=== PATIENT | female | born 1945 | race Caucasian/White ===

== ENCOUNTER → 2018-04-08 09:32 | Outpatient (CLI) | payer MEDICARE, OTHER, SELFPAY ==
[2018-04-08 12:25] LABS: Absolute Neutrophil Count 2.6 X10^3/uL (2.0-7.7); Basophil# 0.03 X10^3/uL; Basophil% 0.7 % (0-1); Eosinophil# 0.11 X10^3/uL; Eosinophils% 2.5 % (0-5); Hematocrit 36.9 % (37-47); Hemoglobin 11.2 g/dl (12.0-15.0); Lymphocyte % 25.5 % (19-41); Mean Corp Hgb Conc 30.4 g/gl (32-36); Mean Corpuscular Hgb 29.9 pg (27.0-32.0); Mean Corpuscular Volume 98.4 fL (81-99); Mean Platelet Vol. 10.4 fl (6.2-12.0); Monocyte# 0.45 X10^3/uL; Monocyte% 10.4 % (0-10); Neutrophil # 2.63 X10^3/uL (2.7-7.7); Neutrophil % 60.9 % (47-70); Platelet Count 241 K/mm3 (150-450); RBC Distribution Width CV 14.1 % (11.6-14.6); RBC Distribution Width SD 48.6 fl (35.1-43.9); Red Blood Count 3.75 M/mm3 (4.2-5.4); White Blood Count 4.3 K/mm3 (4.4-11.0)
[2018-04-08 12:30] LABS: POSITIVE COUNT NO; POSITIVE DIFFERENTIAL NO; POSITIVE MORPHOLOGY NO
[2018-04-08 12:35] LABS: ALB/GLOB Ratio 1.1 RATIO (0.9-2.4); AST(SGOT) 28 U/L (15-37); Alanine Aminotransfer ALT/SGPT 29 U/L (13-56); Albumin, Serum 3.6 g/dL (3.2-5.0); Alkaline Phosphatase 87 U/L (45-117); Anion Gap 9 (5-15); BUN 12 mg/dL (7-18); BUN/Creat Ratio 19.5 RATIO (10-20); Chloride 112 mmol/L (98-107); Cholesterol 153 mg/dL (200); Creatinine, Serum 0.61 mg/dL (0.55-1.02); EST Glomerular Filtration Rate 102 mL/min (>60); Est Glom Filt Rate - Afr Amer 123 mL/min (>60); Globulin 3.2 g/dL (2.2-4.2); Glucose 75 mg/dL (74-106); High Density Lipoprotein 61 mg/dL; Magnesium 1.9 mg/dL (1.6-2.6); Potassium 3.4 mmol/L (3.5-5.1); Protein, Total 6.8 g/dL (6.4-8.2); Sodium Level 147 mmol/L (136-145); Triglycerides 85 mg/dL; Very Low Density Lipoprotein 17 mg/dL (5-40)
[2018-04-08 12:40] LABS: Hemoglobin A1c 4.6 % (4.2-6.3)
[2018-04-08 12:47] LABS: Vitamin B12 > 2000 pg/mL (211-911)
== END ==
PROVIDERS: Family Provider Family Medicine; PCP Family Medicine; Visit Provider Family Medicine
DX: R73.09 Other abnormal glucose (principal); E78.00 Pure hypercholesterolemia, unspecified; Z90.3 Acquired absence of stomach [part of]
CPT/HCPCS: 36415; 80053; 80061; 82607; 83036; 83735; 85025

== ENCOUNTER → 2018-05-26 08:07 | Outpatient (CLI) | payer MEDICARE, OTHER, SELFPAY | PROVIDERS: Family Provider Family Medicine; PCP Family Medicine; Visit Provider Family Medicine | DX: R10.11 Right upper quadrant pain (principal) | CPT/HCPCS: 76705 ==

== ENCOUNTER → 2018-06-11 06:49 | Outpatient (CLI) | payer MEDICARE, OTHER, SELFPAY ==
--- NOTE | 2018-06-11 07:00 | CT_ITS ---
STUDY: CT ABDOMEN AND PELVIS WITH CONTRAST REASON FOR EXAM: Female, 73 years old. Right-sided abdominal pain. History of prior gastrectomy. Possible gallbladder mass versus polyp. RADIATION DOSAGE (If Supplied By Facility): CTDIvol = ( 20.42 ) mGy, DLP = ( 1318.92 ) mGycm TECHNIQUE: Transaxial images were obtained from the dome of the diaphragm to the symphysis pubis with oral contrast. 100mL ml of Isovue 300 contrast was administered. Sagittal and coronal images were reconstructed. Individualized dose optimization techniques were used for this CT. COMPARISON: Comparison is made with prior examination dated February 06, 2014. FINDINGS: Minimal degree of increased linear markings in the lingular segment of the left upper lobe suggestive of linear atelectasis and/or scarring. Tiny pericardial effusion along the posterior aspect of the pericardium. Normal liver. The gallbladder is distended. There is dilatation of the common bile duct down to the ampulla of Vater. The transverse dimension of the common bile duct is 1 cm. Possible mass of the ampulla of Vater should be Normal spleen. Normal pancreas. There is a stable 6 mm x 9.8 mm calcification in the posterior aspect of the medial limb of the right adrenal gland. There is also evidence of a 1 cm hypodense nodule in the posterior aspect of the left adrenal gland. Normal right kidney. There is a 4.3 mm nonobstructive calculus in the lower pole calyx of the left kidney. The patient is status post gastrectomy. The suture line is seen at the gastroesophageal junction. Normal small intestine. There are scattered colonic diverticula consistent with diverticulosis. The appendix is visualized and appears normal. Normal abdominal aorta. Normal inferior vena cava. Normal retroperitoneum. Normal urinary bladder. Normal abdominal wall. There are diffuse degenerative changes of the visualized lumbar spine. Stable loss of height of the superior endplate of the L3 vertebrae. CT/Abdomen/Pelvis WITH Contrast IMPRESSION: Distended gallbladder. Dilated common bile duct down to the insertion into the ampulla of Vater. Prior gastrectomy. Electronically Signed: Jozef Red MD at 9:06 EDT Tel [phone], Service support ,
[2018-06-11 07:10] LABS: CREATININE FINGERSTICK 0.7 mg/dL (0.55-1.02)
== END ==
PROVIDERS: Family Provider Family Medicine; PCP Family Medicine; Visit Provider Family Medicine
DX: K82.8 Other specified diseases of gallbladder (principal)
CPT/HCPCS: 74177; Q9967

== ENCOUNTER → 2018-06-19 09:00 | Outpatient (CLI) | payer MEDICARE, OTHER, SELFPAY ==
[2018-06-22 09:23] LABS: Carbohydrate Ag 19-9 2261 12 U/mL (0-35); Carcinoembryonic Antigen 12.6 ng/mL (0.0-4.7)
== END ==
PROVIDERS: Surgery; Family Provider Family Medicine; PCP Family Medicine; Visit Provider Family Medicine
DX: K82.8 Other specified diseases of gallbladder (principal); R10.13 Epigastric pain
CPT/HCPCS: 36415; 82378; 86301

== ENCOUNTER → 2018-06-24 06:15 | Outpatient (CLI) | payer MEDICARE, OTHER, SELFPAY ==
--- NOTE | 2018-06-24 06:17 | MRI_ITS ---
STUDY: MR CHOLANGIOPANCREATOGRAPHY (MRCP) REASON FOR EXAM: Female, 73 years old. Abdominal pain, f/u to ct abd ; u/s; hx gastrectomy TECHNIQUE: Standard MRCP technique was utilized. COMPARISON: CT Abdomen/Pelvis Jun 11 2018 7:25am US Abdomen May 26 2018 8:18am FINDINGS: Degenerative findings of the lumbar spine. There is a small pericardial effusion. There are calcifications of the abdominal aorta. This is consistent for atherosclerotic disease. There is no abdominal aortic aneurysm. Gall Bladder: There is either gallbladder sludge or multiple small layering gallstones. Cystic duct: Normal with no demonstrated fixed filling defect. Intrahepatic ducts: There is intrahepatic ductal dilation. This is mostly visualized on the left side. Common hepatic duct: Normal with no demonstrated fixed filling defect, dilation or stricture. Common bile duct: There is dilation of the common bile duct. A common bile duct stone is not seen. The CBD diameter is 10 mm. Pancreatic duct: Normal with no demonstrated fixed filling defect, dilation or stricture. MRI/MRCP Abdomen without Contrast IMPRESSION: There is either gallbladder sludge or multiple small layering gallstones. There is dilation of the common bile duct. A common bile duct stone is not seen. The CBD diameter is 10 mm. Electronically Signed: Martin Washington MD at 23:30 EDT , Service support ,
== END ==
PROVIDERS: Family Provider Family Medicine; PCP Family Medicine; Referring Provider Surgery; Visit Provider Surgery
DX: R10.9 Unspecified abdominal pain (principal); R93.2 Abnormal findings on diagnostic imaging of liver and biliary tract
CPT/HCPCS: 74181

== ENCOUNTER → 2018-10-05 10:08 | Outpatient (CLI) | payer MEDICARE, OTHER, SELFPAY ==
[2018-10-05 12:04] LABS: Absolute Lymphocyte Count 1.15 X10^3/ul (0.83-4.51); Absolute Neutrophil Count 2.2 X10^3/uL (2.0-7.7); Basophil# 0.04 X10^3/uL; Eosinophil# 0.19 X10^3/uL; Eosinophils% 4.9 % (0-5); Hematocrit 39.9 % (37-47); Hemoglobin 12.1 g/dl (12.0-15.0); Lymphocyte # 1.15 X10^3/ul (4.0); Lymphocyte % 29.6 % (19-41); Mean Corp Hgb Conc 30.3 g/gl (32-36); Mean Corpuscular Hgb 29.3 pg (27.0-32.0); Mean Corpuscular Volume 96.6 fL (81-99); Mean Platelet Vol. 10.3 fl (6.2-12.0); Monocyte% 7.7 % (0-10); Neutrophil # 2.21 X10^3/uL (2.7-7.7); Neutrophil % 56.8 % (47-70); Platelet Count 211 K/mm3 (150-450); RBC Distribution Width CV 14.7 % (11.6-14.6); RBC Distribution Width SD 51.9 fl (35.1-43.9); Red Blood Count 4.13 M/mm3 (4.2-5.4); White Blood Count 3.9 K/mm3 (4.4-11.0)
[2018-10-05 12:05] LABS: ALB/GLOB Ratio 1.2 RATIO (0.9-2.4); AST(SGOT) 33 U/L (15-37); Alanine Aminotransfer ALT/SGPT 34 U/L (13-56); Albumin, Serum 3.7 g/dL (3.2-5.0); Alkaline Phosphatase 102 U/L (45-117); Anion Gap 9 (5-15); BUN 9 mg/dL (7-18); BUN/Creat Ratio 14.5 RATIO (10-20); Chloride 112 mmol/L (98-107); Creatinine, Serum 0.62 mg/dL (0.55-1.02); EST Glomerular Filtration Rate 101 mL/min (>60); Est Glom Filt Rate - Afr Amer 122 mL/min (>60); Glucose 79 mg/dL (74-106); Potassium 3.8 mmol/L (3.5-5.1); Protein, Total 6.7 g/dL (6.4-8.2); Sodium Level 144 mmol/L (136-145)
[2018-10-05 12:10] LABS: Vitamin B12 1283 pg/mL (211-911); Vitamin D,25 Hydroxy 37.8 ng/mL (29.95-100.01)
[2018-10-05 12:13] LABS: POSITIVE COUNT NO; POSITIVE DIFFERENTIAL NO; POSITIVE MORPHOLOGY NO
== END ==
PROVIDERS: Family Provider Family Medicine; PCP Family Medicine; Visit Provider Family Medicine
DX: D50.9 Iron deficiency anemia, unspecified (principal); Z90.3 Acquired absence of stomach [part of]
CPT/HCPCS: 36415; 80053; 82306; 82607; 83735; 85025

== ENCOUNTER → 2020-03-20 10:26 | Outpatient (CLI) | payer MEDICARE, OTHER, SELFPAY ==
[2018-06-18 08:27] VITALS: BMI 23.8
[2020-03-20 12:06] LABS: Absolute Lymphocyte Count 1.05 X10^3/uL (0.83-4.51); Basophil# 0.04 X10^3/uL; Basophil% 0.7 % (0-1); Eosinophil# 0.13 X10^3/uL; Eosinophils% 2.3 % (0-5); Hematocrit 40.7 % (37-47); Hemoglobin 12.4 g/dL (12.0-15.0); Lymphocyte # 1.05 X10^3/ul (4.0); Lymphocyte % 18.5 % (19-41); Mean Corp Hgb Conc 30.5 g/dL (32-36); Mean Corpuscular Hgb 30.8 pg (27.0-32.0); Mean Platelet Vol. 10.7 fl (6.2-12.0); Monocyte# 0.49 X10^3/uL; Monocyte% 8.6 % (0-10); NRBC Flagged by Analyzer 0 % (0-5); Neutrophil # 3.97 X10^3/uL (2.7-7.7); Neutrophil % 69.7 % (47-70); Platelet Count 229 K/mm3 (150-450); RBC Distribution Width CV 14.7 % (11.6-14.6); RBC Distribution Width SD 53.8 fl (35.1-43.9); Red Blood Count 4.03 M/mm3 (4.2-5.4); White Blood Count 5.7 K/mm3 (4.4-11.0)
[2020-03-20 12:22] LABS: ALB/GLOB Ratio 1.2 RATIO (0.9-2.4); AST(SGOT) 26 U/L (15-37); Alanine Aminotransfer ALT/SGPT 30 U/L (13-56); Albumin, Serum 4.1 g/dL (3.2-5.0); Alkaline Phosphatase 91 U/L (45-117); Anion Gap 8 (5-15); BUN 10 mg/dL (7-18); Calcium,Total 9.6 mg/dL (8.5-10.1); Chloride 104 mmol/L (98-107); Cholesterol 200 mg/dL (200); Creatinine, Serum 0.71 mg/dL (0.55-1.02); EST Glomerular Filtration Rate 85 mL/min (>60); Est Glom Filt Rate - Afr Amer 103 mL/min (>60); Globulin 3.3 g/dL (2.2-4.2); Glucose 85 mg/dL (74-106); High Density Lipoprotein 90 mg/dL; Potassium 3.8 mmol/L (3.5-5.1); Protein, Total 7.4 g/dL (6.4-8.2); Sodium Level 140 mmol/L (136-145); Triglycerides 87 mg/dL; Very Low Density Lipoprotein 17 mg/dL (5-40)
== END ==
PROVIDERS: PCP Family Medicine; Visit Provider Family Medicine
DX: D50.9 Iron deficiency anemia, unspecified (principal); I10 Essential (primary) hypertension
CPT/HCPCS: 36415; 80053; 80061; 85025

== ENCOUNTER → 2020-03-23 13:09 | Outpatient (CLI) | payer MEDICARE, OTHER, SELFPAY ==
[2018-06-18 08:27] VITALS: BMI 23.8
--- NOTE | 2020-03-23 13:15 | RAD_ITS ---
STUDY: X-RAY - LEFT FOOT CLINICAL: Female, 74 years old. Left foot pain and burning TECHNIQUE: 3 view(s) of the foot. COMPARISON: None. FINDINGS: Normal talus, calcaneus, and tarsal bones. Normal visualized subtalar, talonavicular, calcaneocuboid, tarsal and tarsometatarsal articulations. Normal metatarsi. There is degenerative arthrosis of the metatarsophalangeal joint of the hallux . Normal tibial and fibular sesamoid bones. Normal interphalangeal joint of the great toe. Normal phalanges of the great toe. Normal second through fifth metatarsophalangeal joints. Mild PIP and DIP joint arthrosis The soft tissue structures are unremarkable. RAD/Foot min 3 Views IMPRESSION: Degenerative arthrosis, no demonstrated fracture or suspicious osseous lesion Electronically Signed: Mich Jain MD at 13:36 EDT , Service support ,
== END ==
PROVIDERS: PCP Family Medicine
DX: M79.672 Pain in left foot (principal)
CPT/HCPCS: 73630

== ENCOUNTER → 2020-08-11 11:44 | Outpatient (CLI) | payer MEDICARE, OTHER, SELFPAY ==
[2018-06-18 08:27] VITALS: BMI 23.8
[2020-08-11 15:15] LABS: Absolute Lymphocyte Count 1.34 X10^3/uL (0.83-4.51); Absolute Neutrophil Count 3.2 X10^3/uL (2.0-7.7); Basophil# 0.03 X10^3/uL; Basophil% 0.6 % (0-1); Eosinophil# 0.33 X10^3/uL; Eosinophils% 6.2 % (0-5); Hematocrit 41.5 % (37-47); Hemoglobin 12.5 g/dL (12.0-15.0); Lymphocyte # 1.34 X10^3/ul (4.0); Lymphocyte % 25.1 % (19-41); Mean Corp Hgb Conc 30.1 g/dL (32-36); Mean Corpuscular Hgb 29.6 pg (27.0-32.0); Mean Corpuscular Volume 98.1 fL (81-99); Mean Platelet Vol. 10.6 fl (6.2-12.0); Monocyte# 0.38 X10^3/uL; Monocyte% 7.1 % (0-10); NRBC Flagged by Analyzer 0 % (0-5); Neutrophil # 3.24 X10^3/uL (2.7-7.7); Neutrophil % 60.8 % (47-70); Platelet Count 285 K/mm3 (150-450); RBC Distribution Width CV 14.5 % (11.6-14.6); RBC Distribution Width SD 52.5 fl (35.1-43.9); Red Blood Count 4.23 M/mm3 (4.2-5.4); White Blood Count 5.3 K/mm3 (4.4-11.0)
[2020-08-11 15:57] LABS: Anion Gap 6 (5-15); BUN 15 mg/dL (7-18); BUN/Creat Ratio 20.2 RATIO (10-20); Calcium,Total 9.3 mg/dL (8.5-10.1); Chloride 107 mmol/L (98-107); Cholesterol 187 mg/dL (200); Creatinine, Serum 0.74 mg/dL (0.55-1.02); EST Glomerular Filtration Rate 81 mL/min (>60); Est Glom Filt Rate - Afr Amer 98 mL/min (>60); Glucose 84 mg/dL (74-106); High Density Lipoprotein 74 mg/dL; Potassium 3.9 mmol/L (3.5-5.1); Sodium Level 140 mmol/L (136-145); Thyroid Stim Hormone (TSH) 1.25 uIU/mL (0.358-3.74); Triglycerides 98 mg/dL; Very Low Density Lipoprotein 20 mg/dL (5-40)
== END ==
PROVIDERS: PCP Family Medicine; Referring Provider Family Medicine; Visit Provider Family Medicine
DX: E78.00 Pure hypercholesterolemia, unspecified (principal); I10 Essential (primary) hypertension
CPT/HCPCS: 36415; 80048; 80061; 84443; 85025

== ENCOUNTER → 2020-09-11 09:57 | Outpatient (CLI) | payer MEDICARE, OTHER, SELFPAY ==
[2018-06-18 08:27] VITALS: BMI 23.8
--- NOTE | 2020-09-11 10:02 | RAD_ITS ---
STUDY: X-RAY - ABDOMEN/PELVIS REASON FOR EXAM: Female, 75 years old. Pt had a gastrectomy about 5 years ago, is having burning across anterior abdomen now TECHNIQUE: AP supine and upright views of the abdomen and pelvis. COMPARISON: None. FINDINGS: Normal visualized lung bases. A loop recording device is seen overlying the left cardiac border. There is an unremarkable bowel gas pattern. There is no demonstrated free abdominal air. Surgical clips are seen in the epigastric region in keeping with history of prior gastrectomy sutures are seen in the left mid abdomen. Normal soft tissue structures. There are diffuse degenerative changes of the visualized lumbar spine. Mild levoscoliosis. Osteoarthritis of both hip joints. RAD/Abd Inc Decub and/or Erect IMPRESSION: Nonspecific bowel gas pattern. History of prior gastrectomy and anastomosis in the left midabdomen. Electronically Signed: Jozef Red, at 10:46 EST , Service support ,
[2020-09-11 12:27] LABS: Absolute Lymphocyte Count 0.94 X10^3/uL (0.83-4.51); Absolute Neutrophil Count 2.6 X10^3/uL (2.0-7.7); Basophil# 0.03 X10^3/uL; Basophil% 0.7 % (0-1); Eosinophil# 0.67 X10^3/uL; Eosinophils% 14.6 % (0-5); Hematocrit 42.3 % (37-47); Hemoglobin 13.4 g/dL (12.0-15.0); Lymphocyte # 0.94 X10^3/ul (4.0); Lymphocyte % 20.5 % (19-41); Mean Corp Hgb Conc 31.7 g/dL (32-36); Mean Corpuscular Hgb 30.2 pg (27.0-32.0); Mean Corpuscular Volume 95.3 fL (81-99); Mean Platelet Vol. 10.3 fl (6.2-12.0); Monocyte# 0.35 X10^3/uL; Monocyte% 7.6 % (0-10); NRBC Flagged by Analyzer 0 % (0-5); Neutrophil # 2.58 X10^3/uL (2.7-7.7); Neutrophil % 56.4 % (47-70); Platelet Count 264 K/mm3 (150-450); RBC Distribution Width CV 14.6 % (11.6-14.6); RBC Distribution Width SD 51.8 fl (35.1-43.9); Red Blood Count 4.44 M/mm3 (4.2-5.4); White Blood Count 4.6 K/mm3 (4.4-11.0)
[2020-09-11 12:51] LABS: ALB/GLOB Ratio 1.5 RATIO (0.9-2.4); AST(SGOT) 29 U/L (15-37); Alanine Aminotransfer ALT/SGPT 36 U/L (13-56); Albumin, Serum 4.2 g/dL (3.2-5.0); Alkaline Phosphatase 106 U/L (45-117); Amylase 54 U/L (25-115); Anion Gap 7 (5-15); BUN 15 mg/dL (7-18); BUN/Creat Ratio 21.6 RATIO (10-20); Calcium,Total 9.3 mg/dL (8.5-10.1); Chloride 102 mmol/L (98-107); Creatinine, Serum 0.69 mg/dL (0.55-1.02); EST Glomerular Filtration Rate 88 mL/min (>60); Est Glom Filt Rate - Afr Amer 106 mL/min (>60); Globulin 2.8 g/dL (2.2-4.2); Glucose 83 mg/dL (74-106); Lipase 141 U/L (73-393); Potassium 4.4 mmol/L (3.5-5.1); Sodium Level 136 mmol/L (136-145)
== END ==
PROVIDERS: PCP Family Medicine; Referring Provider Nurse Practitioner Adult Health; Visit Provider Nurse Practitioner Adult Health
DX: R10.9 Unspecified abdominal pain (principal); R11.0 Nausea
CPT/HCPCS: 36415; 74019; 80053; 82150; 83690; 85025

== ENCOUNTER → 2020-10-23 14:25 | Outpatient (CLI) | payer MEDICARE, OTHER, SELFPAY ==
[2018-06-18 08:27] VITALS: BMI 23.8
== END ==
PROVIDERS: PCP Family Medicine; Referring Provider Family Medicine; Visit Provider Family Medicine
DX: Z20.822 Contact with and (suspected) exposure to COVID-19 (principal)
CPT/HCPCS: 87635; U0003

== ENCOUNTER → 2020-11-15 08:57 | Outpatient (CLI) | payer MEDICARE, OTHER, SELFPAY ==
[2018-06-18 08:27] VITALS: BMI 23.8
[2020-11-15 11:01] LABS: ALB/GLOB Ratio 1.5 RATIO (0.9-2.4); AST(SGOT) 30 U/L (15-37); Alanine Aminotransfer ALT/SGPT 38 U/L (13-56); Albumin, Serum 4.1 g/dL (3.2-5.0); Alkaline Phosphatase 86 U/L (45-117); Anion Gap 5 (5-15); BUN 20 mg/dL (7-18); BUN/Creat Ratio 26.1 RATIO (10-20); Calcium,Total 9.4 mg/dL (8.5-10.1); Chloride 106 mmol/L (98-107); Creatinine, Serum 0.77 mg/dL (0.55-1.02); EST Glomerular Filtration Rate 78 mL/min (>60); Est Glom Filt Rate - Afr Amer 95 mL/min (>60); Globulin 2.8 g/dL (2.2-4.2); Glucose 81 mg/dL (74-106); Potassium 4.1 mmol/L (3.5-5.1); Protein, Total 6.9 g/dL (6.4-8.2); Sodium Level 142 mmol/L (136-145)
== END ==
PROVIDERS: PCP Family Medicine; Referring Provider Family Medicine; Visit Provider Family Medicine
DX: I10 Essential (primary) hypertension (principal)
CPT/HCPCS: 36415; 80053

== ENCOUNTER → 2021-03-19 09:26 | Outpatient (CLI) | payer MEDICARE, OTHER, SELFPAY ==
[2018-06-18 08:27] VITALS: BMI 23.8
[2021-03-19 12:22] LABS: Absolute Lymphocyte Count 1.12 X10^3/uL (0.83-4.51); Absolute Neutrophil Count 2.8 X10^3/uL (2.0-7.7); Basophil# 0.03 X10^3/uL; Basophil% 0.7 % (0-1); Eosinophil# 0.19 X10^3/uL; Eosinophils% 4.2 % (0-5); Hematocrit 39.5 % (37-47); Hemoglobin 12.3 g/dL (12.0-15.0); Lymphocyte # 1.12 X10^3/ul (0.83-4.51); Lymphocyte % 24.6 % (19-41); Mean Corp Hgb Conc 31.1 g/dL (32-36); Mean Corpuscular Hgb 29.6 pg (27.0-32.0); Mean Platelet Vol. 9.7 fl (6.2-12.0); Monocyte# 0.41 X10^3/uL; NRBC Flagged by Analyzer 0 % (0-5); Neutrophil # 2.79 X10^3/uL (2.7-7.7); Neutrophil % 61.3 % (47-70); Platelet Count 273 K/mm3 (150-450); RBC Distribution Width CV 14.5 % (11.6-14.6); RBC Distribution Width SD 50.2 fl (35.1-43.9); Red Blood Count 4.16 M/mm3 (4.2-5.4); White Blood Count 4.6 K/mm3 (4.4-11.0)
[2021-03-19 12:57] LABS: ALB/GLOB Ratio 1.1 RATIO (0.9-2.4); AST(SGOT) 28 U/L (15-37); Alanine Aminotransfer ALT/SGPT 29 U/L (13-56); Albumin, Serum 3.9 g/dL (3.2-5.0); Alkaline Phosphatase 93 U/L (45-117); Anion Gap 8 (5-15); BUN 15 mg/dL (7-18); BUN/Creat Ratio 17.1 RATIO (10-20); Calcium,Total 9.3 mg/dL (8.5-10.1); Chloride 101 mmol/L (98-107); Cholesterol 195 mg/dL (200); Creatinine, Serum 0.88 mg/dL (0.55-1.02); EST Glomerular Filtration Rate 67 mL/min (>60); Est Glom Filt Rate - Afr Amer 81 mL/min (>60); Globulin 3.4 g/dL (2.2-4.2); Glucose 81 mg/dL (74-106); High Density Lipoprotein 90 mg/dL; Potassium 3.9 mmol/L (3.5-5.1); Protein, Total 7.3 g/dL (6.4-8.2); Sodium Level 139 mmol/L (136-145); Triglycerides 77 mg/dL; Very Low Density Lipoprotein 15 mg/dL (5-40)
== END ==
PROVIDERS: PCP Family Medicine; Referring Provider Family Medicine; Visit Provider Family Medicine
DX: I10 Essential (primary) hypertension (principal)
CPT/HCPCS: 36415; 80053; 80061; 85025

== ENCOUNTER → 2021-09-27 13:51 | Outpatient (CLI) | payer MEDICARE, OTHER, SELFPAY ==
--- NOTE | 2021-09-27 13:54 | RAD_ITS ---
STUDY: X-RAY - THORACIC SPINE REASON FOR EXAM: Female, 76 years old. PAIN TECHNIQUE: 2 view(s) of the thoracic spine were obtained. COMPARISON: None. FINDINGS: Normal kyphosis of the thoracic spine. Mild dextroscoliosis of the upper thoracic spine. There is multilevel endplate spondylosis of the thoracic vertebrae. There is multilevel disc space narrowing of the thoracic spine. The soft tissue structures are unremarkable. RAD/Thoracic Spine 3 Views IMPRESSION: Mild dextroscoliosis with the degenerative disc disease. Electronically Signed: Garrett Angeles MD at 7:31 EST Tel , Service support ,
== END ==
PROVIDERS: PCP Family Medicine; Referring Provider Anesthesiology Pain Medicine; Visit Provider Anesthesiology Pain Medicine
DX: M51.34 Other intervertebral disc degeneration, thoracic region (principal)
CPT/HCPCS: 72072

== ENCOUNTER → 2023-05-29 | Outpatient (CLI) | payer MEDICARE, OTHER, SELFPAY ==
[2023-05-29 09:58] LABS: D-Dimer Quantitative (DVT/PE) 0.96 FEU/ug/m (0.27-0.49)
== END | disposition home or self-care (01) ==
PROVIDERS: PCP Family Medicine; Referring Provider Nurse Practitioner Family; Visit Provider Nurse Practitioner Family
DX: R06.02 Shortness of breath (principal)
CPT/HCPCS: 85379

== ENCOUNTER 2024-02-12 11:00 | Outpatient (RCR) | payer MEDICARE, OTHER, SELFPAY ==
--- NOTE | 2024-01-07 11:20 | HP.PTEVAL ---
Patient's Visit Information Visit Information Visit Information: МАРИЯ MOSQUERA is a 78 year old F referred to Physical Therapy by Dr. Iron Watts MD with a diagnosis of R peripheral vertigo. Date of Evaluation: 01/07/24 Physical Therapist: Adalid Landaverde, DPT, OCS, CSCS Visit Plan Frequency: 2x /Week Duration: 4-6 Weeks Plan: 2x/week for 4-6 weeks(start one f/u EG for positional and oculomotor check and treat) positional dizzyness treatments. adaptation ex if necessary Teach general strength and balance ex once dizzyness gone for progression to home I. Subjective Subjective: Sees Stefanie as she was in the hospital 2 weeks ago with dizzyness that took her to the hospital. She was seeing him already for migraines. Sizzyness started 2 weeks ago with ringing in ears and spinning, woke up that way and hard to walk. Dtr took to ER and testing and in hospital showed prior stroke but not a new one. Was dizzy at that time unless she stayed still in supine. Also could sit comfortably. Sent home dizzy 3 days later and unable to walk but having to use walker. Since then has gotten a little better able to walk without AD. Still gets spinning sitting up in the am but not at night lying, rolling does not make dizzy. Truning head quickly up or down can also make her feel out of control;. it lasts for up to an hour and she has to lie down. Sleeping is OK now. Not employed. Spends day taking care of which she can do but has to take it slow. Will see ENT soon. Will have ablation on back later this month for pain with Dr. King. Exercises, at home walking. until yesterday. Hobbies: reading and word search. Reading limited due to cataracts. basic ADL: all I but slower if dizzy. Steps 2 to enter, and ramp Overall 40% better. No falls, does not need walker anymore, cane at times. Was having home PT strength but needed to stop to come to for vestibular, likes getting out of house. Objective Objective: Walks slowly but I into PT safely. trasnfers with some groan with back pain but I bed and chair. Steps reciprocal with two rails up and down. cervical aROM WFL and without c/o pain. weakness evident pushing up steps as needs railing. Slow to exit chair makes weakness evident also. UE AROM slow and about 130 elevation, stiff but funcitonal. - L hallpike madeleine Slight + r hallpike madeleine for asymmetrical dizzyness and possible up torsional nystagmus both last 10 seconds and not present on the L. Treated with modified R angelina and then - HD test. Balance/Special Test Scores Functional Gait Assessment Score: 23 % Disability: 23.3400 CATSIB Score (Max score 120 seconds): 76 Dizziness Score: 54 Goals Goal 1:: abolish dizzyness with sitting up and moving head 95% Goal Time Frame: 4-6 Weeks Goal 2:: Pt DHI score 16 or less Goal Time Frame: 4-6 Weeks Goal 3:: I appropriate HEP for general ex and balance as needed to limit future problems. Goal Time Frame: 4-6 Weeks Rehabilitation Potential Physical Therapy Diagnosis: vertigo effecting function and weakness overall from hospital stays. Rehabilitation Potential: Fair Anticipated Interventions Patient/Client Instruction: Educate patient on: Condition, Plan of Care and Risk Factors For the Purpose of:: To increase tolerance to activity/condition/position, To improve ability of physical actions for home/community/work/leisure and To improve gait and locomotor functions Therapeutic Exercise to Include: Strength training and Gait and locomotor training Comment: positional and adaptation as needed For the Purpose of:: To improve muscle performance and motor function, To increase tolerance to activity/condition/position, To improve ability of physical actions for home/community/work/leisure and To improve gait and locomotor functions Text: Thank you for the opportunity to evaluate your patient. For Medicare and Medicare HMO plans, please review the plan of care and approve it. It will need to be FAXED BACK to us at [phone] for Medicare purposes. For Medicare only, by signing this I certify the plan of care. Please let me know if there are questions or concerns regarding this plan of care. Physician Signature: Date:
--- NOTE | 2024-02-12 11:13 | HP.PTDCSUM ---
Discharge Summary D/C summary: It has been my pleasure to treat МАРИЯ MOSQUERA referred by Dr. Iron Watts MD, with the diagnosis of R peripheral vertigo for a total of 9 visit(s). Discharge Date: 02/12/24 Please see the following information for a summary of their discharge status. Subjective Subjective: Back is feeling pretty good, stiffer in am but time helps. Pool really helps her feel wonderful and will continue at pool at house. No dizzyness lately, balance improvements and no dizzyness with VOR, doing counter exercises at home. 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 Pain BACK: Pain Intensity (Out of 10): 6 Overall Improvement % Improvement: 90 Objective Objective/Function: No dizzyness with head movements today. LB AROM ext mod limited but SB and flexion are good and none painful. Moving well and walking safe and I. ready to be on her own in home pool adn HEP Goals Goal 1:: abolish dizzyness with sitting up and moving head 95% Goal Progress: Goal Met Goal 2:: Pt DHI score 16 or less Goal Progress: Goal Met Goal 3:: I appropriate HEP for general ex and balance as needed to limit future problems. Goal Progress: Goal Met Plan Plan: d/c D/C Information d/c sentence: If there are questions or concerns regarding this patient's physical therapy, please feel free to call me at [phone]. Thank you for the referral of this patient. Sincerely, Adalid Landaverde, DPT, OCS, CSCS Balance/Gait/Functional tests Balance/Special Test Scores Functional Gait Assessment Score: 26 % Disability: 13.3400 CATSIB Score (Max score 120 seconds): 76 Dizziness Score: 0 30 Second Chair Rise Test Seconds: 13 Improvement % Improvement: 90
== END 2024-02-12 12:17 | disposition home or self-care (01) ==
LOC: PT 11:00
PROVIDERS: PCP Family Medicine; Referring Provider Psychiatry & Neurology Neurology; Visit Provider Psychiatry & Neurology Neurology
DX: H81.391 Other peripheral vertigo, right ear (principal)
CPT/HCPCS: 97113; 97162; 97164; 97530

== ENCOUNTER 2024-12-22 15:15 | Emergency (ER) | payer MEDICARE, OTHER, SELFPAY ==
[2024-12-22] VITALS (7 sets, daily range): BP systolic 119–159; BP diastolic 65–90; PULSE 60–87; RESP 15–21; TEMP 36.4–36.6; O2SAT 94–99
--- NOTE | 2024-12-22 15:27 | ED.VIS.CHEST ---
HPI History of Present Illness Chief Complaint: Chest Pain [facility] Medical History Gallbladder mass Epigastric abdominal pain Anxiety and depression Gastroparesis History of diverticulitis Renal calculi Peptic ulcer Back pain Osteoarthritis HTN (hypertension) Home Medications ?Medication ?Instructions ?Recorded ?Last Taken ?Type baclofen 10 mg tablet 10 mg PO TID 01/23/14 02/06/14 History lisinopril 20 mg tablet 20 mg PO DAILY 01/23/14 02/06/14 History mirtazapine 30 mg tablet 30 mg PO QHS 01/23/14 Unknown History ropinirole 4 mg tablet 4 mg PO TID 01/23/14 02/06/14 History ascorbate calcium (vitamin C) 500 500 mg PO DAILY 06/18/18 Unknown History mg tablet cetirizine 10 mg tablet (Zyrtec) 5 mg PO DAILY PRN 06/18/18 Unknown History escitalopram oxalate 10 mg tablet 10 mg PO DAILY 06/18/18 Unknown History potassium chloride 20 mEq 20 meq PO DAILY 06/18/18 Unknown History tablet,extended release vitamin B complex (B 1 tab PO DAILY 06/18/18 Unknown History Complex-Vitamin B12 tablet) Allergy/AdvReac Type Severity Reaction Status Date / Time metoclopramide (From Reglan) Allergy Mild rash Verified 12/22/24 15:20 morphine Allergy Mild rash Verified 12/22/24 15:20 sertraline HCl (From Zoloft) AdvReac Vomiting Verified 12/22/24 15:20 Sulfa (Sulfonamide AdvReac Vomiting Verified 12/22/24 15:20 Antibiotics) Family History Mother Cancer kidney Diabetes Brother Diabetes Sister Diabetes Daughter Diabetes Surgical History Status post laparoscopic Belkys fundoplication History of colonoscopy History of esophagogastroduodenoscopy (EGD) History of tonsillectomy and adenoidectomy History of sinus surgery Status post insertion of percutaneous endoscopic gastrostomy (PEG) tube History of surgical removal of ganglion cyst History of gastrectomy (~2015) History of hernia repair History of laparoscopy History of carpal tunnel release History of laminectomy Status post trigger finger release Social History Smoking Status: Never smoker EXAM Physical Exam Const Vital Signs: 12/22/24 15:17 12/22/24 15:38 12/22/24 16:16 Temperature 97.5 F L Temperature Source Temporal Pulse Rate 87 63 Respiratory Rate 20 H Respiratory Effort Short of Breath Blood Pressure 139/90 H 119/89 H Blood Pressure Mean 106 99 Pulse Ox 98 99 Oxygen Delivery Method Room Air Room Air 12/22/24 16:57 12/22/24 18:00 12/22/24 19:00 Temperature Temperature Source Pulse Rate 63 63 60 Respiratory Rate 19 H Respiratory Effort Blood Pressure 136/66 H 159/65 H 151/81 H Blood Pressure Mean 89 96 104 Pulse Ox 98 97 98 Oxygen Delivery Method Room Air Room Air Room Air 12/22/24 20:00 12/22/24 20:43 Temperature 98 F Temperature Source Pulse Rate 60 60 Respiratory Rate 15 21 H Respiratory Effort Blood Pressure 148/68 H 148/78 H Blood Pressure Mean 94 101 Pulse Ox 94 98 Oxygen Delivery Method Room Air MDM MDM MDM Narrative Medical decision making narrative: HISTORY OF PRESENT ILLNESS: 79-year-old female history of anxiety, depression, vertigo, shortness of breath, status post pacer presents concern for chest pain, shortness of breath and dizziness. She states the symptoms began 5 to 6 days ago. Is been intermittent. She gets worse shortness of breath with exertion. Denies leg swelling. Denies any bleeding diathesis. Notes left-sided chest discomfort. The pain is sharp. It is not pressure-like. Is not radiating. Also associated dizziness. Denies associated nausea vomiting. Denies any bleeding diathesis. Notes a recent cough denies any fever chills or sick contacts. The patient denies recent surgery in the last 4 weeks or immobilization in the last 3 days, denies previous diagnosis of DVT or PE, hemoptysis, unilateral leg swelling or malignancy with treatment the last 6 months or palliative. No estrogen use noted. Patient denies sudden onset of pain, no tearing sensation, no migratory symptoms, no new numbness, weakness or loss of sensation. Patient denies family history or personal history of Connective tissue disorders (Marfan's Syndrome, Sam Danlos etc) In addition to the symptoms the patient daughter notes she has had breath the or slurred speech. Last known well was greater than 24 hours ago. They note sometimes she talks without her dentures which causes some change in her speech. REVIEW OF SYSTEMS: Pertinent positives: Chest pain, shortness of breath, dizziness Pertinent negatives: Vomiting, syncope PHYSICAL EXAM: Nursing triage notes reviewed, Vital signs reviewed Constitutional: please see mdm HENT: MMM Eyes: Pupils equal round and reactive to light, Extraocular muscles intact Neck: No stridor, no JVD, full neck ROM Lungs: Clear to auscultation, No wheezing or rales. No increased work of breathing, no conversational dyspnea, no accessory muscle use, no nasal flaring. No respiratory distress noted Heart: Regular rate and rhythm, No murmurs, No rubs and No gallops, 2+ distal pulses (radial, femoral, posterior tibial) in all extremities Abdomen: Soft, there is no tenderness, rigidity, rebound or guarding, no obvious peritoneal signs, no palpable pulsatile abdominal masses, no auscultated abdominal bruit : No CVAT Extremities: No edema Neuro: Alert and oriented x3, neuro exam at baseline, cranial nerves II through XII are intact. No pain with extraocular muscle movement. There is negative test of skew. 5 of 5 strength in upper and lower extremities in flexion extension. Intact sensation to light touch in upper and lower extremity dermatomes. No truncal or extremity ataxia. No dysdiadochokinesia. Normal gait. 2+ reflexes in upper and lower extremities. No meningeal signs. Negative Babinski. NIH of 0. Skin: No rash or lesions noted MEDICAL DECISION MAKING: Chief Complaint: Chest pain, shortness breath, dizziness External records reviewed: Reviewed prior cardiovascular testing Factors affecting care: As per HPI Social determinants of health: none History obtained from others: Daughter Consults: none [facility] Narrative: The patient was initially hemodynamically stable, afebrile and nontoxic-appearing. Exam without focus of cardiopulmonary abnormality. No sign of rales or wheezes. The patient did have tachypnea and some conversational dyspnea but this seemed to be associated with anxiety. Legs did not show signs of significant edema or calf tenderness. I considered the following differential diagnosis: ACS, arrhythmia, anemia electrolyte disturbance, PE, aortic dissection, pneumonia, posterior circulation CVA I obtained a broad lab and imaging workup to further elucidate etiology of patient's complaints. I will obtain a CT scan of the head given report of slurred or breathy speech although her NIH was 0 and her last known well was outside of any TNK or thrombectomy window. ALL IMAGES (IF OBTAINED) HAVE BEEN PERSONALLY REVIEWED AND INTERPRETED BY MYSELF. EKG with normal sinus rhythm rate 78, left ax deviation, normal intervals, no STEMI, no stigmata of ARVD, WPW, Brugada syndrome or VTE CBC without leukocytosis, severe anemia, no thrombocytopenia. High-sensitivity troponin is negative, no evidence of myocardial ischemiax3 rules out by high-sensitivity troponin protocol BMP without evidence of significant electrolyte abnormalities, no anion gap, no acute kidney injury. I have personally reviewed the patient's chest x-ray. Chest x-ray is unremarkable for pulmonary edema, pneumothorax, pneumonia or focal cardiopulmonary abnormality. COVID/RSV/flu is negative CT scan of the head is negative for ICH or mass or bleed Patient ambulated well in the emergency presents in for hypoxia. She had no chest pain. She noted symptomatic improvement. She is appropriate for discharge home The patient and/or family, caregivers express understanding. The patient and/or family, caregivers agrees with the plan. Shared decision making: I will have a discussion with the patient and or visitors regarding risk/benefits of further testing or admission. They will be made aware of of the risk/benefits inherent in this decision they will be given the opportunity to voice understanding. Total critical care time today provided was at least 0 minutes. This excludes separately billable procedures. Critical care time (if documented) is secondary to the patient having high probability of clinically significant/life threatening deterioration in the patient's condition which required my urgent intervention. Impression: 1. Dyspnea 2. Status post pacemaker Dispo: Discharge home This note was generated with [employer] dictation software. It may contain incorrect words, spelling, and punctuation that were not noted in review of the chart prior to signing. Lab Data Labs: Laboratory Results - last 24 hr 12/22/24 12/22/24 12/22/24 15:30 17:32 19:30 WBC 5.8 RBC 4.07 L Hgb 12.8 Hct 39.6 MCV 97.3 MCH 31.4 MCHC 32.3 RDW Std Deviation 52.8 H RDW Coeff of Lino 14.6 Plt Count 219 MPV 10.1 Immature Gran % (Auto) 0.200 Neut % (Auto) 65.9 Lymph % (Auto) 23.1 Clayton % (Auto) 7.4 Eos % (Auto) 2.7 Baso % (Auto) 0.7 Absolute Neuts (auto) 3.9 Absolute Lymphs (auto) 1.35 Nucleated RBC % 0 Sodium 141 Potassium 4.2 Chloride 106 Carbon Dioxide 21.9 Anion Gap 13 BUN 29 H Creatinine 0.94 Est GFR (MDRD) Non-Af 62 BUN/Creatinine Ratio 30.6 H Glucose 131 H Calcium 9.4 Troponin T High Sens 15 H Troponin T Hi Sens 2 Hr 14 Troponin T Hi Sens 4Hr 17 H Radiography Diagnostic Testing: Clinical Impression(s) from Imaging Studies Brain CT 12/22/24 16:02 IMPRESSION: No acute intracranial abnormality; no acute infarct, intracranial hemorrhage or extra-axial collection. Mild chronic microvascular ischemia and involutional changes. [facility] Dis[facility] Triage Chief Complaint: Chest Pain ED Provider: Mickey Gore Dx/Rx/DC Orders Instructions: Chest Pain [facility] Prescriptions: No Action potassium chloride 20 mEq tablet extended release 20 meq PO DAILY escitalopram oxalate 10 mg tablet 10 mg PO DAILY vitamin B complex [B Complex-Vitamin B12] tablet 1 tab PO DAILY cetirizine [Zyrtec] 10 mg tablet 5 mg PO DAILY PRN ascorbate calcium (vitamin C) 500 mg tablet 500 mg PO DAILY lisinopril 20 MG tablet 20 mg PO DAILY baclofen 10 MG tablet 10 mg PO TID mirtazapine 30 MG tablet 30 mg PO QHS ropinirole 4 MG tablet 4 mg PO TID Primary Care Provider: Carlos Stone Referrals: Kuldeep Phelan MD [Non-Staff] - Activity Restrictions/Additional Instructions: Thank you for trusting us with your care today! Please take Tylenol (2 pills, 650 mg), ibuprofen (2 pills, 400 mg) every 6 hours as needed for pain and fever control. Please return to the emergency department if your symptoms change or worsen. Please follow with your primary care physician for further outpatient evaluation and management. Print Language: Panamanian Disposition Disposition: Home, Self Care Discharge Date/Time: 12/22/24 21:38
--- NOTE | 2024-12-22 15:37 | EKG12_ITS ---
Test Reason : CP Blood Pressure : */* mmHG Vent. Rate : 78 BPM Atrial Rate : 78 BPM P-R Int : 144 ms QRS Dur : 78 ms QT Int : 412 ms P-R-T Axes : * -24 -14 degrees QTcB Int : 469 ms Normal sinus rhythm Minimal voltage criteria for LVH, may be normal variant ( R in aVL ) Nonspecific T wave abnormality Abnormal ECG Confirmed by JEANNE GARCIA, NATHANAEL ([id number]), associate entertainment editor KADEN DAVID ([id number]) on 12/23/2024 8:06:06 AM Referred By: Mickey Gore Confirmed By: NATHANAEL ANGEL MD
[2024-12-22] MEDS: Acetaminophen 325 MG Tablet 650 MG PO (15:46)
[2024-12-22] MEDS: proCHLORPERazine 10 MG/2 ML Vial 5 MG IV (15:46)
[2024-12-22 15:51] LABS: Absolute Lymphocyte Count 1.35 X10^3/uL (0.83-4.51); Absolute Neutrophil Count 3.9 X10^3/uL (2.0-7.7); Basophil# 0.04 X10^3/uL; Basophil% 0.7 % (0-1); Eosinophil# 0.16 X10^3/uL; Eosinophils% 2.7 % (0-5); Hematocrit 39.6 % (37-47); Hemoglobin 12.8 g/dL (12.0-15.0); Lymphocyte # 1.35 X10^3/ul (0.83-4.51); Lymphocyte % 23.1 % (19-41); Mean Corp Hgb Conc 32.3 g/dL (32-36); Mean Corpuscular Hgb 31.4 pg (27.0-32.0); Mean Corpuscular Volume 97.3 fL (81-99); Mean Platelet Vol. 10.1 fl (6.2-12.0); Monocyte# 0.43 X10^3/uL; Monocyte% 7.4 % (0-10); NRBC Flagged by Analyzer 0 % (0-5); Neutrophil # 3.85 X10^3/uL (2.7-7.7); Neutrophil % 65.9 % (47-70); Platelet Count 219 K/mm3 (150-450); RBC Distribution Width CV 14.6 % (11.6-14.6); RBC Distribution Width SD 52.8 fl (35.1-43.9); Red Blood Count 4.07 M/mm3 (4.2-5.4); White Blood Count 5.8 K/mm3 (4.4-11.0)
--- NOTE | 2024-12-22 16:02 | CT_ITS ---
EXAM: CT brain without contrast. CLINICAL HISTORY: Dizziness and headache COMPARISON: None TECHNIQUE: Axial CT of the brain without contrast. Coronal and sagittal reconstructions with component. FINDINGS: No acute intracranial hemorrhage, mass, mass effect, midline shift or pathologic extra-axial fluid collection. Mild parenchymal atrophy with commensurate increase in CSF containing spaces. Patchy white matter hypodensities, patient demographics favor chronic microvascular ischemic changes. Paranasal sinuses and mastoid air cells are clear. The calvarium is grossly intact. CT/Brain/Head without Contrast IMPRESSION: No acute intracranial abnormality; no acute infarct, intracranial hemorrhage or extra-axial collection. Mild chronic microvascular ischemia and involutional changes. Reading Location: [facility]
[2024-12-22 16:21] LABS: Troponin T High Sensitivity 15 ng/L (<=14)
[2024-12-22 16:27] LABS: Anion Gap 13 (5-15); BUN 29 mg/dL (4-19); BUN/Creat Ratio 30.6 RATIO (10-20); Calcium,Total 9.4 mg/dL (7.6-11.0); Carbon Dioxide 21.9 mmol/L (21.0-32.0); Chloride 106 mmol/L (98-108); Creatinine, Serum 0.94 mg/dL (0.70-1.20); EST Glomerular Filtration Rate 62 (>60); Glucose 131 mg/dL (70-99); Potassium 4.2 mmol/L (3.3-5.1); Sodium Level 141 mmol/L (133-145)
[2024-12-22 18:07] LABS: Troponin T High Sens 2 HR 14 ng/L (<=14)
[2024-12-22 20:25] LABS: Troponin T High Sens 4 HR 17 ng/L (<=14)
== END 2024-12-22 21:38 | disposition home or self-care (01) ==
PROVIDERS: Emergency Provider Emergency Medicine; PCP Student in an Organized Health Care Education/Training Program; Referring Provider Emergency Medicine; Visit Provider Emergency Medicine
DX: R06.00 Dyspnea, unspecified (principal); R07.89 Other chest pain; R42 Dizziness and giddiness; R47.9 Unspecified speech disturbances; I10 Essential (primary) hypertension; F32.A Depression, unspecified; F41.9 Anxiety disorder, unspecified; Z95.0 Presence of cardiac pacemaker; Z88.2 Allergy status to sulfonamides; Z87.11 Personal history of peptic ulcer disease; Z87.19 Personal history of other diseases of the digestive system; Z79.899 Other long term (current) drug therapy
CPT/HCPCS: 70450; 80048; 84484; 85025; 87631; 93005; 96374; 99283; A4216

== ENCOUNTER 2025-06-03 10:49 | Emergency (ER) | payer MEDICARE, OTHER, SELFPAY ==
[2025-06-03 10:49] VITALS: BP 118/75; PULSE 66; RESP 16; TEMP 36.9; O2SAT 100; BMI 20.4
--- NOTE | 2025-06-03 10:56 | ED.VIS.GI ---
HPI HPI - GI History of Present Illness Chief Complaint: Abd Pain Informant: patient Abdominal Pain/Flank Pain Onset: Yesterday Context: Gradual Onset Timing: Continuous Quality: Dull and Sharp Location: RUQ and RLQ Worsened by: Movement and - (Standing) Relieved by: - (Laying down) Nausea/Vomiting/Emesis GI Symptom: Positive for Nausea and Vomiting Quality: Positive for Nonbilious; Negative for Blood streaks, Coffee ground or Hematemesis Diarrhea/Melena/Hematochezia GI Symptom: Negative for Diarrhea, Melena or Hematochezia Associated Symptoms Associated Symptoms: Positive for Frequency; Negative for Dysuria or Hematuria Narrative Narrative: Patient presents with right-sided abdominal pain that began yesterday. Patient states she was not feeling well the day before yesterday. Patient states her pain came on gradually. Patient states it is mainly over the right side of her abdomen. Patient describes it as sharp and dull. Patient states it is worse when she stands up and moves. Patient states it is better when she lays down. Patient admits to having some nausea and vomiting. Patient denies any hematemesis or coffee-ground emesis. Patient denies any diarrhea, melena, or hematochezia. Patient admits to some urinary frequency but denies any dysuria or hematuria. Patient admits to some subjective fevers and chills. [facility] Medical History Gallbladder mass Epigastric abdominal pain Anxiety and depression Gastroparesis History of diverticulitis Renal calculi Peptic ulcer Back pain Osteoarthritis HTN (hypertension) Home Medications ?Medication ?Instructions ?Recorded ?Last Taken ?Type baclofen 10 mg tablet 10 mg PO TID 01/23/14 02/06/14 History lisinopril 20 mg tablet 20 mg PO DAILY 01/23/14 02/06/14 History mirtazapine 30 mg tablet 30 mg PO QHS 01/23/14 Unknown History ropinirole 4 mg tablet 4 mg PO TID 01/23/14 02/06/14 History ascorbate calcium (vitamin C) 500 500 mg PO DAILY 06/18/18 Unknown History mg tablet cetirizine 10 mg tablet (Zyrtec) 5 mg PO DAILY PRN 06/18/18 Unknown History escitalopram oxalate 10 mg tablet 10 mg PO DAILY 09/20/18 Unknown History potassium chloride 20 mEq 20 meq PO DAILY 06/18/18 Unknown History tablet,extended release vitamin B complex (B 1 tab PO DAILY 06/18/18 Unknown History Complex-Vitamin B12 tablet) hydrocodone-acetaminophen 5-325mg 1 tab PO Q6H PRN PRN Pain 3 days 06/03/25 Unknown Rx 5mg-325mg #10 TABLETS ondansetron 4 mg disintegrating 4 mg PO Q8H PRN PRN Nausea #10 tabs 06/03/25 Unknown Rx tablet Allergy/AdvReac Type Severity Reaction Status Date / Time metoclopramide (From Reglan) Allergy Mild rash Verified 12/22/24 15:20 morphine Allergy Mild rash Verified 12/22/24 15:20 sertraline HCl (From Zoloft) AdvReac Vomiting Verified 12/22/24 15:20 Sulfa (Sulfonamide AdvReac Vomiting Verified 12/22/24 15:20 Antibiotics) Family History Mother Cancer kidney Diabetes Brother Diabetes Sister Diabetes Daughter Diabetes Surgical History Status post laparoscopic Belkys fundoplication History of colonoscopy History of esophagogastroduodenoscopy (EGD) History of tonsillectomy and adenoidectomy History of sinus surgery Status post insertion of percutaneous endoscopic gastrostomy (PEG) tube History of surgical removal of ganglion cyst History of gastrectomy (~2015) History of hernia repair History of laparoscopy History of carpal tunnel release History of laminectomy Status post trigger finger release Social History Smoking Status: Never smoker ROS ROS ED Constitutional Constitutional ED: Reports chills, fever(s) and subjective Eyes Eyes: Denies blurry vision or change in vision ENT ENT ED: Reports rhinorrhea; Denies sore throat Cardiovascular Cardiovascular: Denies chest pain or palpitations Respiratory/Chest Respiratory/Chest: Denies cough or dyspnea Gastrointestinal Gastrointestinal: Reports abdominal pain, nausea and vomiting; Denies diarrhea or melena Genitourinary Genitourinary ED: Reports urinary frequency; Denies dysuria or hematuria Musculoskeletal Musculoskeletal: Reports back pain; Denies neck pain Integumentary Denies abscess or rash Neurologic Neurologic: Reports headache(s); Denies weakness Allergic/Immunologic Allergic/Immunologic ED: Denies mouth swelling or urticaria EXAM Physical Exam Const Vital Signs: 06/03/25 10:49 Temperature 98.4 F Temperature Source Oral Pulse Rate 66 Respiratory Rate 16 Blood Pressure 118/75 Blood Pressure Mean 89 Pulse Ox 100 Oxygen Delivery Method Room Air Positive well nourished and well developed General Appearance ED: well developed and NAD HEENT Reports moist mucous membranes Neck supple and no JVD Resp normal respiratory effort and clear to auscultation bilaterally Cardio regular rate and regular rhythm GI non-distended Palpation: soft and tender RLQ and RUQ; Negative for guarding or rebound tenderness present Extremity full ROM General Extremety ED: Negative for edema or tenderness General Extremity: Negative for edema Neuro CN's II-XII intact bilaterally, moves all extremities and no sensory deficits noted Sensorium / Orientation: alert Motor Exam: strength 5/5 throughout Psych mental status grossly normal MDM MDM MDM Narrative Medical decision making narrative: Differential diagnosis includes choledocholithiasis, pyelonephritis, pancreatitis, bowel obstruction, perforation, appendicitis, constipation, dehydration, and electrolyte abnormality. CBC will be obtained to assess for leukocytosis and anemia. Comprehensive metabolic profile will be obtained to assess for hepatic function, renal function, and electrolyte abnormality. Urinalysis will be obtained to assess for urinary tract infection. Lipase will be obtained to assess for pancreatitis. CT scan of the abdomen and pelvis will be obtained to assess for bowel obstruction, perforation, pancreatitis, appendicitis, and choledocholithiasis. Lab Data Attestation: I reviewed the patient's lab results. Lab results narrative: CBC was reviewed and was essentially within normal limits. Comprehensive metabolic profile was reviewed. BUN was slightly elevated at 22. AST was minimally elevated at 45, ALT was minimally elevated at 66. The remainder is within normal limits. Lipase was reviewed and was normal at 43. Urinalysis was reviewed. There is no evidence of urinary tract infection or hematuria. Labs: Laboratory Results - last 24 hr 06/03/25 06/03/25 11:29 12:00 WBC 6.2 RBC 4.01 L Hgb 12.5 Hct 38.5 MCV 96.0 MCH 31.2 MCHC 32.5 RDW Std Deviation 52.5 H RDW Coeff of Lino 14.9 H Plt Count 145 L MPV 9.7 Immature Gran % (Auto) 0.300 Neut % (Auto) 78.4 H Lymph % (Auto) 9.8 L Z[place]ata % (Auto) 10.9 H Eos % (Auto) 0.3 Baso % (Auto) 0.3 Absolute Neuts (auto) 4.9 Absolute Lymphs (auto) 0.61 L Nucleated RBC % 0 Sodium 136 Potassium 3.9 Chloride 104 Carbon Dioxide 20.7 L Anion Gap 12 BUN 22 H Creatinine 0.96 Estim Creat Clear Calc 41.78 L Est GFR (MDRD) Non-Af 61 BUN/Creatinine Ratio 23.5 H Glucose 72 Calcium 9.2 Total Bilirubin 0.50 AST 45 H ALT 66 H Alkaline Phosphatase 63 Total Protein 6.6 Albumin 4.1 Globulin 2.5 Albumin/Globulin Ratio 1.7 Lipase 43 Urine Color Yellow Urine Clarity Clear Urine pH 8.0 Ur Specific [place] 1.010 Urine Protein 15 H Urine Glucose (UA) Normal Urine Ketones Negative Urine Occult Blood Negative Urine Nitrite Negative Urine Bilirubin Negative Urine Urobilinogen Normal Ur Leukocyte Esterase Negative Urine RBC 0 SEEN Urine WBC 0 SEEN Ur Squamous Epith Cells 0 SEEN Urine Bacteria 0 SEEN Urine Mucus 0 SEEN Radiography Diagnostic Testing: Clinical Impression(s) from Imaging Studies Abdomen/Pelvis CT 06/03/25 11:37 IMPRESSION: 1. No acute abnormality. 2. Nonobstructing renal calculi. 3. Cholecystectomy. 4. Postsurgical changes of the bowel likely from gastric bypass. 5. Very severe degenerative changes of the spine with decreased bone mineralization and insufficiency fractures. These are new compared to 2018 but otherwise age indeterminate. Reading Location: [facility] CT scan of the abdomen and pelvis was obtained. There is no acute abnormality noted. There are nonobstructing renal calculi. There are postsurgical changes from gastric bypass. There are degenerative changes of the lumbar spine. This was interpreted by the radiologist and was also independently reviewed by myself. Treatment and Re-Evaluation :: Patient was given IV fluids, and Zofran. Patient was given a dose of [place] here. Patient was advised of her findings. Patient was given a prescription for a short course of [place]. Patient was instructed to follow-up with her primary care physician in 3 to 5 days for reevaluation. Patient understood and was agreeable with the plan. All questions were answered. Discharge Plan Triage Chief Complaint: Abd Pain ED Provider: Adalid Tran Dx/Rx/DC Orders Clinical Impression: Abdominal pain, Nausea and vomiting Instructions: ED Abdominal Pain Unkn Cause Fem Prescriptions: New hydrocodone-acetaminophen 5-325 mg tablet 1 tab PO Q6H PRN PRN (Reason: Pain) 3 Days Qty: 10 0RF ondansetron 4 mg tablet,disintegrating 4 mg PO Q8H PRN PRN (Reason: Nausea) Qty: 10 0RF No Action potassium chloride 20 mEq tablet extended release 20 meq PO DAILY escitalopram oxalate 10 mg tablet 10 mg PO DAILY vitamin B complex [B Complex-Vitamin B12] tablet 1 tab PO DAILY cetirizine [Zyrtec] 10 mg tablet 5 mg PO DAILY PRN ascorbate calcium (vitamin C) 500 mg tablet 500 mg PO DAILY lisinopril 20 MG tablet 20 mg PO DAILY baclofen 10 MG tablet 10 mg PO TID mirtazapine 30 MG tablet 30 mg PO QHS ropinirole 4 MG tablet 4 mg PO TID Primary Care Provider: Carlos Stone Referrals: Carlos Stone, [Primary Care Provider] - Keep [place] appointment Print Language: Bengali Disposition Disposition: Home, Self Care
[2025-06-03] MEDS: 0.9% Normal Saline (1000mL) 1,000 ML 999 ML IV (11:28)
[2025-06-03 11:35] LABS: Hematocrit 38.5 % (37-47); Hemoglobin 12.5 g/dL (12.0-15.0); Immature Granulocytes Count 0.020 X10^3/uL (0.0-0.0); Mean Corp Hgb Conc 32.5 g/dL (32-36); Mean Corpuscular Volume 96.0 fL (81-99); Mean Platelet Vol. 9.7 fl (6.2-12.0); NRBC Flagged by Analyzer 0 % (0-5); Platelet Count 145 K/mm3 (150-450); RBC Distribution Width CV 14.9 % (11.6-14.6); RBC Distribution Width SD 52.5 fl (35.1-43.9); Red Blood Count 4.01 M/mm3 (4.2-5.4); White Blood Count 6.2 K/mm3 (4.4-11.0)
--- NOTE | 2025-06-03 11:37 | CT_ITS ---
PROCEDURE: ABDOMEN/PELVIS W IV CONT ONLY 06/03/2025 REASON FOR EXAM: ABDOMINAL PAIN TECHNIQUE: Procedure Code: [id number] Modality: CT Procedure: ABDOMEN/PELVIS W IV CONT ONLY Coronal and Sagittal reconstruction series were provided. CONTRAST: Isovue 370 VOLUME: 90 mL One or more dose reduction techniques were used (e.g., Automated exposure control, adjustment of the mA and/or kV according to patient size, use of iterative reconstruction technique. RADIATION DOSE SUMMARY: CTDlvol: 11 mGy DLP: 574 mGycm COMPARISON: June 11, 2018, June 24, 2018 FINDINGS: Lung bases: Linear scarring in the inferior lingula and left lower lobe. Liver: Normal Gallbladder: Cholecystectomy. No biliary ductal dilation. Some pneumobilia is present involving the left lobe. Spleen: Normal Pancreas: Normal Adrenals: Possibly a subcentimeter adenoma involving the adrenal body/posterior limb on the left. Otherwise normal. Right adrenal gland shows some dystrophic calcification of the posterior limb that may be the sequelae of old infarct or hemorrhage. Kidneys: 3 mm calculus right midpole and left mid to lower pole. No obstruction. Bladder: Normal Reproductive Organs: Motion artifact. Uterus is anteverted. No adnexal mass. Bowel: Postsurgical changes to the stomach and small bowel likely sequelae of gastric bypass. No obstruction. The Delia limb is not dilated. Appendix: Normal Lymph nodes: None appear enlarged Vasculature: [id number] atherosclerotic plaque without aneurysm. Peritoneum / Retroperitoneum: No free air, free fluid or mass. Bones: Anterior to the right abdominal wall is a mass representing a lipoma measuring 6.4 x 2.2 x 7.1 cm. Decreased bone mineralization. Severe degenerative disc changes with marked interspinous arthropathy of the lumbar spine. Multiple compression fractures are seen involving T8, T10, T11, T12, superior endplate L3. Severe arthritis of both hips. CT/Abdomen/Pelvis W IV Cont ONLY IMPRESSION: 1. No acute abnormality. 2. Nonobstructing renal calculi. 3. Cholecystectomy. 4. Postsurgical changes of the bowel likely from gastric bypass. 5. Very severe degenerative changes of the spine with decreased bone mineraliz ation and insufficiency fractures. These are new compared to 2018 but otherwise age indeterminate. Reading Location: [id number]
[2025-06-03 12:03] LABS: AST(SGOT) 45 U/L (<=31); Alanine Aminotransfer ALT/SGPT 66 U/L (<=34); Albumin, Serum 4.1 g/dL (3.4-4.8); Alkaline Phosphatase 63 U/L (35-104); Anion Gap 12 (5-15); BUN 22 mg/dL (4-19); BUN/Creat Ratio 23.5 RATIO (10-20); Calcium,Total 9.2 mg/dL (7.6-11.0); Carbon Dioxide 20.7 mmol/L (21.0-32.0); Chloride 104 mmol/L (98-108); Estimated Creatinine Clearance 41.78 ml/min (50-250); Globulin 2.5 g/dL (2.2-4.2); Glucose 72 mg/dL (70-99); Lipase 43 U/L (13-75); Potassium 3.9 mmol/L (3.3-5.1)
[2025-06-03 12:04] LABS: Mucous, Urine 0 SEEN /hpf (<or=2+); Red Blood Cells-Urine 0 SEEN /hpf (0-5); Squamous Epithelial Cells - UA 0 SEEN /hpf (5-10)
[2025-06-03 12:06] LABS: Color, Urine Yellow (Yellow); Glucose, Dipstick Normal (Normal); Ketone-Dipstick Negative (Negative); Leukocyte Esterase-Dipstick Negative /ul (Negative); Nitrite-Dipstick Negative (Negative); Occult Blood-Urine Negative /ul (Negative); Protein-Dipstick 15 mg/dl (Negative); Specific Gravity, Urine 1.010 (1.002-1.030); Urine Bilirubin Dipstick Negative (Negative)
[2025-06-03 12:47] VITALS: BP 140/73; PULSE 66; O2SAT 100
[2025-06-03] MEDS: HYDROcodone Bitartrate/Apap 5/325 Tablet PO (13:24)
[2025-06-03 13:37] VITALS: BP 141/71; PULSE 66; RESP 16; TEMP 36.9; O2SAT 100
== END 2025-06-03 13:46 | disposition home or self-care (01) ==
PROVIDERS: Emergency Provider Emergency Medicine; PCP Student in an Organized Health Care Education/Training Program; Visit Provider Emergency Medicine
DX: R10.9 Unspecified abdominal pain (principal); R11.2 Nausea with vomiting, unspecified; N20.0 Calculus of kidney; I10 Essential (primary) hypertension; F41.9 Anxiety disorder, unspecified; F32.A Depression, unspecified; Z87.19 Personal history of other diseases of the digestive system; Z87.11 Personal history of peptic ulcer disease; Z90.49 Acquired absence of other specified parts of digestive tract; Z98.84 Bariatric surgery status; Z79.899 Other long term (current) drug therapy
CPT/HCPCS: 74177; 80053; 81001; 83690; 85025; 96361; 96374; 99284; Q9967; A4216; J2405